=== PATIENT | male | born 1960 | race Two or more races ===

== ENCOUNTER 2017-08-13 12:25 | Inpatient (IN) | payer BC ==
[~2017-08-13] VITALS: Ht 170.2 cm; Wt 79.3 kg
[2017-08-13] MEDS ORDERED: MORPHINE SULF INJ 2 MG/ML SYRINGE 1ML ONE (12:40)
[2017-08-13] MEDS ORDERED: HEPARIN 1,000 UNITS/ml 1ML VIAL ONE (12:41)
[2017-08-13] MEDS ORDERED: HEPARIN SODIUM (PORCINE) 5000 UNITS/ML 1ML VIAL IV ONE (12:45)
[2017-08-13] MEDS ORDERED: MORPHINE SULF INJ 2 MG/ML SYRINGE 1ML IV ONE ×2 (12:45→14:30)
[2017-08-13] MEDS ORDERED: SODIUM CHLORIDE 0.9% 1,000 ML IV ONE (12:46)
[2017-08-13] MEDS ORDERED: IOHEXOL 350 MG/ML 100ML IJ ONE ×2 (12:47→13:43)
[2017-08-13] MEDS ORDERED: LIDOCAINE 2%HCL (LOCAL ANESTH.) INJ 20ML MDV ONE (12:47)
[2017-08-13] MEDS ORDERED: ANGIOMAX 250 MG VIAL IV ONE (12:55)
[2017-08-13] MEDS ORDERED: fentaNYL CITRATE 100 MCG/2 ML VL ONE (12:55)
[2017-08-13] MEDS ORDERED: SODIUM CHL 0.9% 50 ML ONE (12:56)
[2017-08-13] MEDS ORDERED: MIDAZOLAM HCL 1MG/1ML-2 ML VIAL ONE (12:56)
[2017-08-13 13:05] LABS: Basophils # (auto) 0 uL; Basophils % (auto) 0.2 % (0.0-2.0); Eosinophils # (auto) 0 uL; Eosinophils % (auto) 0.1 % (0.0-7.0); Hemoglobin 14.9 g/dL (13.5-17.5); Lymphocytes # (auto) 0.7 uL; Lymphocytes % (auto) 6.3 % (10.0-50.0); Mean Corpuscular Hemoglobin 33.7 pg (28.0-32.0); Mean Corpuscular Hgb Conc. 33.8 g/dL (32.0-36.0); Mean Corpuscular Volume 99.5 fL (80.0-100.0); Monocytes # (auto) 0.2 uL; Neutrophils # (auto) 9.7 uL; Neutrophils % (auto) 91.4 % (37.0-80.0); Platelet Count (auto) 193 10^3/uL (140-450); Red Blood Cells 4.42 10^6/uL (4.5-5.90); Red Cell Distribution Width 12.8 % (11.8-14.3); White Blood Cell 10.6 10^3/uL (4.4-10.8)
[2017-08-13] MEDS ORDERED: ATROPINE SULF 0.5 MG/5ML SYR ONE (13:05)
[2017-08-13] MEDS ORDERED: EPTIFIBATIDE DRIP(0.75MG/ML) 100 ML IV ONE ×2 (13:36→14:17)
[2017-08-13] MEDS ORDERED: EPTIFIBATIDE INJ (2MG/ML) 10ML VIAL IV ONE (13:36)
[2017-08-13 13:46] LABS: INR 0.92 (0.9-1.15); Partial Thromboplastin Time 25.1 sec (22.64-33.71)
[2017-08-13] MEDS ORDERED: PRASUGREL HCL 10 MG TAB ONE (13:48)
[2017-08-13 13:55] LABS: Potassium 3.8 mmol/L (3.5-5.1)
[2017-08-13 13:56] LABS: Bilirubin, Total 0.5 mg/dL (0.2-1.0); Calcium 8.5 mg/dL (8.5-10.1); Magnesium 2.6 mg/dL (1.6-2.6); Total Protein 7.4 g/dL (6.4-8.2)
[2017-08-13] MEDS ORDERED: ENALAPRIL MALEATE 10 MG TAB ONE (14:08)
[2017-08-13] MEDS ORDERED: NITROGLYCERIN 0.4 MG SL TAB SL PRN (14:30)
[2017-08-13] MEDS ORDERED: MILK OF MAGNESIA 30ML SUSP PO ONE (14:30)
[2017-08-13] MEDS ORDERED: PRASUGREL HCL 10 MG TAB PO ONE (14:30)
[2017-08-13] MEDS ORDERED: LORazepam 0.5 MG TAB PO PRN (14:30)
[2017-08-13] MEDS ORDERED: ONDANSETRON HCL 4 MG/2 ML VIAL IV PRN (14:30)
[2017-08-13] MEDS ORDERED: ENALAPRIL MALEATE 2.5 MG TAB PO ONE (14:30)
[2017-08-13] MEDS ORDERED: ZOLPIDEM TARTRATE 5 MG TAB PO PRN (14:30)
[2017-08-13] MEDS ORDERED: ASPirin 325 MG TAB PO ONE (14:30)
[2017-08-13 14:48] LABS: Basophils # (auto) 0 uL; Basophils % (auto) 0.1 % (0.0-2.0); Eosinophils # (auto) 0 uL; Hematocrit 42.7 % (41.0-53.0); Hemoglobin 14.1 g/dL (13.5-17.5); Lymphocytes # (auto) 0.7 uL; Lymphocytes % (auto) 5.3 % (10.0-50.0); Mean Corpuscular Hemoglobin 33.2 pg (28.0-32.0); Mean Corpuscular Hgb Conc. 32.9 g/dL (32.0-36.0); Mean Corpuscular Volume 100.7 fL (80.0-100.0); Monocytes # (auto) 0.3 uL; Monocytes % (auto) 2.7 % (0.0-12.0); Neutrophils # (auto) 11.4 uL; Neutrophils % (auto) 91.9 % (37.0-80.0); Platelet Count (auto) 182 10^3/uL (140-450); Red Blood Cells 4.24 10^6/uL (4.5-5.90); White Blood Cell 12.4 10^3/uL (4.4-10.8)
[2017-08-13] MEDS ORDERED: METOPROLOL SUCCINATE XL 50 MG TAB PO ONE (15:15)
[2017-08-13] MEDS ORDERED: METOPROLOL TARTRATE 25 MG TAB ONE (15:15)
[2017-08-13 16:18] LABS: Potassium 3.8 mmol/L (3.5-5.1)
[2017-08-13 16:19] LABS: Albumin 3.8 g/dL (3.4-5.0); BUN/Creatinine Ratio 18.1; Bilirubin, Total 0.6 mg/dL (0.2-1.0); Calcium 8.2 mg/dL (8.5-10.1); Magnesium 2.6 mg/dL (1.6-2.6); Total Protein 7.1 g/dL (6.4-8.2)
[2017-08-13 16:20] VITALS: BP 162/108
[2017-08-13 17:00] VITALS: BP 162/108
[2017-08-13 18:07] LABS: INR 1.33 (0.9-1.15); Prothrombin Time 14.5 sec (9.37-12.3)
[2017-08-13 18:43] LABS: Partial Thromboplastin Time 80.2 sec (22.64-33.71)
[2017-08-13 20:02] VITALS: BP 147/90
[2017-08-13] MEDS: SODIUM CHLOR 0.9% PF (SALINE LOCK) 10ML VIAL IV SCH (21:43)
[2017-08-13] MEDS: ATORVASTATIN 20 MG TAB PO SCH (21:43)
[2017-08-14] VITALS: BP 138/79
[2017-08-14 04:00] VITALS: BP 147/97
[2017-08-14] MEDS: SODIUM CHLOR 0.9% PF (SALINE LOCK) 10ML VIAL IV SCH ×2 (06:04→14:00)
[2017-08-14 06:30] LABS: Albumin 3.4 g/dL (3.4-5.0); BUN/Creatinine Ratio 16.7; Bilirubin, Total 0.9 mg/dL (0.2-1.0); Calcium 8.3 mg/dL (8.5-10.1); Magnesium 2.6 mg/dL (1.6-2.6); Potassium 3.9 mmol/L (3.5-5.1); Total Protein 6.6 g/dL (6.4-8.2)
[2017-08-14 09:07] LABS: Basophils # (auto) 0.1 uL; Basophils % (auto) 0.7 % (0.0-2.0); Eosinophils # (auto) 0 uL; Eosinophils % (auto) 0.1 % (0.0-7.0); Hematocrit 40.7 % (41.0-53.0); Hemoglobin 13.5 g/dL (13.5-17.5); Lymphocytes # (auto) 1.4 uL; Lymphocytes % (auto) 12.1 % (10.0-50.0); Mean Corpuscular Hemoglobin 33.4 pg (28.0-32.0); Mean Corpuscular Hgb Conc. 33.3 g/dL (32.0-36.0); Mean Corpuscular Volume 100.3 fL (80.0-100.0); Neutrophils # (auto) 9.4 uL; Neutrophils % (auto) 79.1 % (37.0-80.0); Platelet Count (auto) 171 10^3/uL (140-450); Red Blood Cells 4.06 10^6/uL (4.5-5.90); Red Cell Distribution Width 12.9 % (11.8-14.3); White Blood Cell 11.9 10^3/uL (4.4-10.8)
[2017-08-14] MEDS: METOPROLOL SUCCINATE XL 50 MG TAB PO SCH (10:00)
[2017-08-14] MEDS: ENALAPRIL MALEATE 10 MG TAB PO SCH (10:55)
[2017-08-14 11:57] VITALS: BP 130/85
[2017-08-14 15:50] VITALS: BP 131/77
[2017-08-14 20:00] VITALS: BP 131/78
[2017-08-14] MEDS: ATORVASTATIN 20 MG TAB PO SCH (22:13)
[2017-08-15] VITALS (7 sets, daily range): BP systolic 122–147; BP diastolic 79–92
[2017-08-15] MEDS: SODIUM CHLOR 0.9% PF (SALINE LOCK) 10ML VIAL IV SCH ×4 (06:53→20:05)
[2017-08-15] MEDS ORDERED: LIDOCAINE 2%HCL (LOCAL ANESTH.) INJ 20ML MDV ONE (06:54)
[2017-08-15] MEDS ORDERED: IOHEXOL 350 MG/ML 100ML IJ ONE ×2 (06:54→09:56)
[2017-08-15] MEDS ORDERED: HEPARIN IN NS 1000Units/500mL 1,500 ML ONE (06:54)
[2017-08-15] MEDS ORDERED: ANGIOMAX 250 MG VIAL IV ONE (08:08)
[2017-08-15] MEDS ORDERED: fentaNYL CITRATE 100 MCG/2 ML VL ONE (08:09)
[2017-08-15] MEDS ORDERED: SODIUM CHL 0.9% 50 ML ONE (08:09)
[2017-08-15] MEDS ORDERED: MIDAZOLAM HCL 1MG/1ML-2 ML VIAL ONE (08:09)
[2017-08-15] MEDS ORDERED: ADENOSINE 90 MG/30 ML INJ IV ONE (09:35)
[2017-08-15] MEDS: ASPirin 81 mg TAB PO SCH (10:26)
[2017-08-15] MEDS: PRASUGREL HCL 10 MG TAB PO SCH (10:26)
[2017-08-15] MEDS: METOPROLOL SUCCINATE XL 50 MG TAB PO SCH (10:27)
[2017-08-15] MEDS: ENALAPRIL MALEATE 10 MG TAB PO SCH (10:27)
[2017-08-15] MEDS: ATORVASTATIN 20 MG TAB PO SCH (20:03)
[2017-08-15] MEDS: ACETAMINOPHEN 500 MG TAB PO PRN ×2 (20:04→20:05)
[2017-08-16 03:55] VITALS: BP 146/88
[2017-08-16 05:21] LABS: Basophils # (auto) 0 uL; Eosinophils # (auto) 0.1 uL; Eosinophils % (auto) 0.7 % (0.0-7.0); Hemoglobin 12.7 g/dL (13.5-17.5); Lymphocytes # (auto) 1.8 uL; Mean Corpuscular Hgb Conc. 34.2 g/dL (32.0-36.0); Monocytes # (auto) 0.7 uL; Neutrophils # (auto) 6.7 uL
[2017-08-16 05:22] LABS: Basophils % (auto) 0.4 % (0.0-2.0); Hematocrit 37.2 % (41.0-53.0); Lymphocytes % (auto) 19.5 % (10.0-50.0); Mean Corpuscular Hemoglobin 34.2 pg (28.0-32.0); Mean Corpuscular Volume 100.1 fL (80.0-100.0); Monocytes % (auto) 7.5 % (0.0-12.0); Neutrophils % (auto) 71.9 % (37.0-80.0); Platelet Count (auto) 144 10^3/uL (140-450); Red Blood Cells 3.72 10^6/uL (4.5-5.90); Red Cell Distribution Width 12.7 % (11.8-14.3); White Blood Cell 9.3 10^3/uL (4.4-10.8)
[2017-08-16 05:47] LABS: Potassium 3.8 mmol/L (3.5-5.1)
[2017-08-16 05:52] LABS: Albumin 2.9 g/dL (3.4-5.0); BUN/Creatinine Ratio 21.1; Calcium 7.7 mg/dL (8.5-10.1)
[2017-08-16 06:15] LABS: Bilirubin, Total 0.6 mg/dL (0.2-1.0); Total Protein 6.3 g/dL (6.4-8.2)
[2017-08-16] MEDS: SODIUM CHLOR 0.9% PF (SALINE LOCK) 10ML VIAL IV SCH (06:25)
[2017-08-16 07:30] VITALS: BP 141/87
[2017-08-16] MEDS: ASPirin 81 mg TAB PO SCH (09:33)
[2017-08-16] MEDS: PRASUGREL HCL 10 MG TAB PO SCH (09:33)
[2017-08-16] MEDS: METOPROLOL SUCCINATE XL 50 MG TAB PO SCH (09:34)
[2017-08-16] MEDS: ENALAPRIL MALEATE 10 MG TAB PO SCH (09:34)
[2017-08-16 11:46] VITALS: BP 143/92
[2017-08-16 13:17] VITALS: BP 143/92
== END 2017-08-16 13:58 | disposition home or self-care (01) | DRG 246 ==
LOC: ER 12:25 → CATH 12:47 → DOU IN ICU 12:48
PROVIDERS: ADMIT Internal Medicine; ATTEND Internal Medicine
PROC: 027035Z Dilation of Coronary Artery, One Artery with Two Drug-eluting Intraluminal Devices, Percutaneous Approach (ICD-10-PCS; principal; 2017-08-13)
PROC: 02C03ZZ Extirpation of Matter from Coronary Artery, One Artery, Percutaneous Approach (ICD-10-PCS; 2017-08-13)
PROC: 4A023N7 Measurement of Cardiac Sampling and Pressure, Left Heart, Percutaneous Approach (ICD-10-PCS; 2017-08-13)
PROC: B2111ZZ Fluoroscopy of Multiple Coronary Arteries using Low Osmolar Contrast (ICD-10-PCS; 2017-08-13)
PROC: B2151ZZ Fluoroscopy of Left Heart using Low Osmolar Contrast (ICD-10-PCS; 2017-08-13)
PROC: 027135Z Dilation of Coronary Artery, Two Arteries with Two Drug-eluting Intraluminal Devices, Percutaneous Approach (ICD-10-PCS; 2017-08-15)
PROC: 4A033BC Measurement of Arterial Pressure, Coronary, Percutaneous Approach (ICD-10-PCS; 2017-08-15)
DX: I21.19 ST elevation (STEMI) myocardial infarction involving other coronary artery of inferior wall (principal); Q23.1 Congenital insufficiency of aortic valve; E78.00 Pure hypercholesterolemia, unspecified; E78.5 Hyperlipidemia, unspecified; I10 Essential (primary) hypertension; I49.9 Cardiac arrhythmia, unspecified; I25.10 Atherosclerotic heart disease of native coronary artery without angina pectoris; I25.2 Old myocardial infarction; Z82.49 Family history of ischemic heart disease and other diseases of the circulatory system; Z95.5 Presence of coronary angioplasty implant and graft
CPT/HCPCS: 36415; 71045; 80053; 80061; 83036; 83735; 83880; 84443; 84484; 85025; 85379; 85610; 85730; 87081; 92933; 93005; 93306; 93458; 93571; 99152; 99153; C1874; C1887; J0153; J0461; J2250

== ENCOUNTER → 2017-11-19 | Outpatient (CLI) | payer BC ==
[~2017-11-19] MED LIST: IOHEXOL 350 MG/ML 100ML IJ ONE; cloNIDine HCL 0.1 MG TAB ONE; cloNIDine HCL 0.1 MG TAB PO ONE
[2017-11-19 09:45] VITALS: BP 201/127
[2017-11-19 11:15] VITALS: BP 179/112
== END | disposition home or self-care (01) ==
LOC: Rad HDHVI 09:37
PROVIDERS: ATTEND Internal Medicine
DX: I10 Essential (primary) hypertension (principal); N40.0 Benign prostatic hyperplasia without lower urinary tract symptoms; I51.7 Cardiomegaly; R09.89 Other specified symptoms and signs involving the circulatory and respiratory systems; I25.2 Old myocardial infarction; Z95.9 Presence of cardiac and vascular implant and graft, unspecified
CPT/HCPCS: 74175; 82565; G0463; Q9967

== ENCOUNTER → 2018-02-26 | Outpatient (CLI) | payer BC | END | disposition home or self-care (01) | LOC: Rad HDHVI 15:57 | PROVIDERS: ATTEND Internal Medicine Cardiovascular Disease | DX: I08.3 Combined rheumatic disorders of mitral, aortic and tricuspid valves (principal); I25.10 Atherosclerotic heart disease of native coronary artery without angina pectoris; I25.5 Ischemic cardiomyopathy; Z95.9 Presence of cardiac and vascular implant and graft, unspecified | CPT/HCPCS: 93306 ==

== ENCOUNTER → 2018-03-02 | Outpatient (CLI) | payer BC ==
[~2018-03-02] VITALS: Ht 170.2 cm; Wt 81.6 kg
== END | disposition home or self-care (01) ==
LOC: Rad HDHVI 09:53
PROVIDERS: ATTEND Internal Medicine Cardiovascular Disease
DX: I11.0 Hypertensive heart disease with heart failure (principal); I25.5 Ischemic cardiomyopathy; I50.23 Acute on chronic systolic (congestive) heart failure
CPT/HCPCS: 78452; 93017; 96374; A9500

== ENCOUNTER → 2018-10-07 | Outpatient (CLI) | payer BC | END | disposition home or self-care (01) | LOC: Rad HDHVI 15:59 | PROVIDERS: ATTEND Internal Medicine Cardiovascular Disease | DX: I08.2 Rheumatic disorders of both aortic and tricuspid valves (principal); I25.5 Ischemic cardiomyopathy; I10 Essential (primary) hypertension | CPT/HCPCS: 93306 ==

== ENCOUNTER → 2018-11-06 | Outpatient (CLI) | payer BC ==
[~2018-11-06] MED LIST changes: +ASPI81TA27 PO; +ATOR20TA50 PO; +CLON0.2T PO; +CLOP75TA28 PO; +DOXA4TAB40 PO; -IOHEXOL 350 MG/ML 100ML IJ ONE; +METO25TA5 PO; -cloNIDine HCL 0.1 MG TAB ONE; -cloNIDine HCL 0.1 MG TAB PO ONE
[2018-11-06 09:00] VITALS: BP 127/79
[2018-11-06 09:34] VITALS: BP 133/82
--- NOTE | 2018-11-06 09:34 | NUR ---
Pre-Op Discharge Summary: See e-MAR for any medications given for this visit. Pre-op orders received and carried out per MD of EKG, LABS and chest xrays. Patient given a copy of EKG with instructions to go to [facility] out patient for further follow up care.
[2018-11-06 12:31] LABS: Basophils # (auto) 0 uL; Basophils % (auto) 0.7 % (0.0-2.0); Eosinophils # (auto) 0.1 uL; Hematocrit 44.7 % (41.0-53.0); Hemoglobin 14.6 g/dL (13.5-17.5); Lymphocytes # (auto) 1.2 uL; Lymphocytes % (auto) 24.6 % (10.0-50.0); Mean Corpuscular Hemoglobin 32.9 pg (28.0-32.0); Mean Corpuscular Hgb Conc. 32.7 g/dL (32.0-36.0); Mean Corpuscular Volume 100.5 fL (80.0-100.0); Monocytes # (auto) 0.2 uL; Monocytes % (auto) 4.9 % (0.0-12.0); Neutrophils # (auto) 3.2 uL; Neutrophils % (auto) 67.8 % (37.0-80.0); Nucleated Red Blood Cells % 0.7 %; Platelet Count (auto) 177 10^3/uL (140-450); Red Blood Cells 4.45 10^6/uL (4.5-5.90); Red Cell Distribution Width 14.2 % (11.8-14.3); White Blood Cell 4.8 10^3/uL (4.4-10.8)
[2018-11-06 12:38] LABS: INR 0.98 (0.9-1.15); Partial Thromboplastin Time 26.4 sec (23.78-33.04); Prothrombin Time 10.5 sec (9.27-12.13)
[2018-11-06 12:59] LABS: BUN/Creatinine Ratio 11.5; Calcium 8.5 mg/dL (8.5-10.1)
== END | disposition home or self-care (01) ==
LOC: Rad HDHVI 08:43
PROVIDERS: ATTEND Internal Medicine Cardiovascular Disease
DX: Z01.812 Encounter for preprocedural laboratory examination (principal); D64.9 Anemia, unspecified; R79.1 Abnormal coagulation profile; I11.9 Hypertensive heart disease without heart failure
CPT/HCPCS: 36415; 71046; 80048; 85025; 85610; 85730; 93005; G0463

== ENCOUNTER 2018-11-10 10:52 | Inpatient (IN) | payer BC ==
[~2018-11-10] VITALS: Ht 170.2 cm; Wt 87.4 kg
[2018-11-10] MEDS ORDERED: MIDAZOLAM HCL 1MG/1ML-2 ML VIAL IV ONE (11:30)
[2018-11-10] MEDS ORDERED: FLUMAZENIL 0.1 MG/ML INJ 10ML MDV IV ONE (11:30)
[2018-11-10] MEDS ORDERED: ANGIOMAX 250 MG VIAL IV ONE (13:54)
[2018-11-10] MEDS ORDERED: fentaNYL CITRATE 100 MCG/2 ML VL ONE (13:54)
[2018-11-10] MEDS ORDERED: SODIUM CHL 0.9% 50 ML ONE (13:54)
[2018-11-10] MEDS ORDERED: IODIXANOL 320MG/ML 100ML BTL IV ONE (14:00)
[2018-11-10] MEDS ORDERED: LIDOCAINE 2%HCL (LOCAL ANESTH.) INJ 20ML MDV ONE (14:00)
[2018-11-10] MEDS ORDERED: IOHEXOL 350 MG/ML 100ML IJ ONE (15:00)
[2018-11-10] MEDS ORDERED: ASPirin 81 mg TAB ONE (15:28)
[2018-11-10] MEDS ORDERED: ISOSTAB OR ×2 (15:52→18:55)
[2018-11-10] MEDS ORDERED: HYDROcodone-ACET 5/325MG TAB PO PRN (16:00)
[2018-11-10] MEDS ORDERED: MORPHINE SULF INJ 2 MG/ML SYRINGE 1ML IV PRN (16:00)
[2018-11-10] MEDS ORDERED: SACUBITRIL-VALSARTAN 24mg/26mg TAB PO ONE (16:00)
[2018-11-10] MEDS ORDERED: ONDANSETRON HCL 4 MG/2 ML VIAL IV PRN (16:00)
[2018-11-10] MEDS ORDERED: NITROGLYCERIN 0.4 MG SL TAB SL PRN (16:00)
[2018-11-10] MEDS ORDERED: ACETAMINOPHEN 500 MG TAB PO PRN (16:00)
--- NOTE | 2018-11-10 18:30 | NUR ---
Resived the patient after 183 from cathlab Bp 170/102 spo2 96% R 18 HR 54 T 97.7 Feeling good OR Nurse gave clonidine and Nitro for HTN reason for patient been SB 54 Patient feeling good at this time /site in right groing area intact and soft no bleeding at bedside with the patient I took his Vs and i took his home medication to the pharmacy and I update his home medication (BIDIL tab 3 time at day ) Open the Care Plan Report gave to Layla HERNANDEZ //Zenaida HERNANDEZ
--- NOTE | 2018-11-10 19:50 | NUR ---
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 Patient is s/p C today, dressing to right groin C/D/I, no s/s of bleeding, swelling or bruising, site soft upon palpation. Bilateral pedal pulse even and regular, brisk capillary refill, positive tissue perfusion. Alert and oriented x 4. On room air with even and unlabored respirations. No S/S of distress/SOB. patient denies pain at this time. Bed low locked position with side rails up x 2 and call light within reach. Instructed on POC and to call for assist PRN, will continue to monitor for changes Q1hr and PRN.
[2018-11-10 20:00] VITALS: BP 190/113
[2018-11-10] MEDS: cloNIDine HCL 0.1 MG TAB PO SCH (21:38)
[2018-11-10] MEDS: SACUBITRIL-VALSARTAN 24mg/26mg TAB PO SCH (21:38)
[2018-11-10] MEDS: METOPROLOL TARTRATE 25 MG TAB PO SCH (21:39)
[2018-11-10] MEDS: ISOSORBIDE DINITRATE 10 MG TAB PO SCH (21:39)
[2018-11-10] MEDS: hydrALAZINE HCL 25 MG TAB PO SCH (21:40)
[2018-11-10] MEDS ORDERED: ATORVASTATIN 20 MG TAB PO SCH (22:00)
[2018-11-10] MEDS ORDERED: PATIENTS OWN MEDICATION (Clonidine Hydrochloride (Clonidine Hcl) 1 TAB) PO SCH (22:00)
[2018-11-10] MEDS ORDERED: cloNIDine HCL 0.1 MG TAB PO PRN (22:00)
[2018-11-10 22:20] VITALS: BP 192/107
[2018-11-11] VITALS (7 sets, daily range): BP systolic 123–168; BP diastolic 75–93
[2018-11-11] MEDS: cloNIDine HCL 0.1 MG TAB PO SCH ×2 (05:10→15:16)
[2018-11-11] MEDS: ISOSORBIDE DINITRATE 10 MG TAB PO SCH ×2 (05:10→15:14)
[2018-11-11] MEDS: hydrALAZINE HCL 25 MG TAB PO SCH ×2 (05:13→15:13)
--- NOTE | 2018-11-11 07:05 | NUR ---
Closing Note patient resting in bed with even and unlabored respirations. No s/s of distress. Positive tissue perfusion bilateral pedal pulses. Dressing to right groin CDI. Endorsed care to day shift RN.
[2018-11-11] MEDS: SACUBITRIL-VALSARTAN 24mg/26mg TAB PO SCH (09:39)
[2018-11-11] MEDS: METOPROLOL TARTRATE 25 MG TAB PO SCH (09:54)
[2018-11-11] MEDS ORDERED: DOXAZOSIN MESYL 2 MG TAB PO SCH (10:00)
[2018-11-11] MEDS ORDERED: CLOPIDOGREL BISULFATE 75 MG TAB PO SCH (10:00)
[2018-11-11] MEDS ORDERED: ASPirin-EC 81 mg tab PO SCH (10:00)
== END 2018-11-11 17:56 | disposition home or self-care (01) | DRG 246 ==
LOC: CATH 10:52 → TELE-WESTW 18:23
PROVIDERS: ADMIT Internal Medicine Cardiovascular Disease; ATTEND Internal Medicine Cardiovascular Disease
PROC: B246ZZ4 Ultrasonography of Right and Left Heart, Transesophageal (ICD-10-PCS; principal; 2018-11-10)
PROC: 027135Z Dilation of Coronary Artery, Two Arteries with Two Drug-eluting Intraluminal Devices, Percutaneous Approach (ICD-10-PCS; 2018-11-10)
PROC: 4A023N7 Measurement of Cardiac Sampling and Pressure, Left Heart, Percutaneous Approach (ICD-10-PCS; 2018-11-10)
PROC: B2111ZZ Fluoroscopy of Multiple Coronary Arteries using Low Osmolar Contrast (ICD-10-PCS; 2018-11-10)
PROC: B2151ZZ Fluoroscopy of Left Heart using Low Osmolar Contrast (ICD-10-PCS; 2018-11-10)
PROC: B41C1ZZ Fluoroscopy of Pelvic Arteries using Low Osmolar Contrast (ICD-10-PCS; 2018-11-10)
DX: I11.0 Hypertensive heart disease with heart failure (principal); I50.21 Acute systolic (congestive) heart failure; I25.5 Ischemic cardiomyopathy; E78.5 Hyperlipidemia, unspecified; I35.0 Nonrheumatic aortic (valve) stenosis
CPT/HCPCS: 82962; 93312; 99152; A6257; C1874; G0378; J2250; Q9967

== ENCOUNTER → 2018-12-30 | Outpatient (CLI) | payer BC ==
[~2018-12-30] MED LIST changes: +ISOSTAB OR
== END | disposition home or self-care (01) ==
LOC: Rad HDHVI 15:56
PROVIDERS: ATTEND Internal Medicine Cardiovascular Disease
DX: I08.8 Other rheumatic multiple valve diseases (principal); I11.9 Hypertensive heart disease without heart failure; I20.0 Unstable angina
CPT/HCPCS: 93306